=== PATIENT | male | born 1965 | race Hispanic/Latino ===

== ENCOUNTER 2020-11-22 10:41 | Outpatient (CLI) | payer BC | END 2020-11-22 10:42 | disposition home or self-care (01) | LOC: SCSRAD 10:41 | PROVIDERS: ATTEND Podiatrist | DX: S90.111A Contusion of right great toe without damage to nail, initial encounter (principal); S92.421A Displaced fracture of distal phalanx of right great toe, initial encounter for closed fracture ==